=== PATIENT | male | born 1985 | race Caucasian/White ===

== ENCOUNTER → 2019-05-05 10:13 | Outpatient (BNVA) | payer MEDICARE, MEDICAID, SELFPAY | PROVIDERS: Family Provider Internal Medicine; PCP Internal Medicine; Referring Provider Internal Medicine; Visit Provider Specialist | DX: G40.309 Generalized idiopathic epilepsy and epileptic syndromes, not intractable, without status epilepticus (principal); G80.9 Cerebral palsy, unspecified; G24.9 Dystonia, unspecified; G12.29 Other motor neuron disease | CPT/HCPCS: 99214 ==

== ENCOUNTER → 2019-08-03 13:38 | Outpatient (BNVA) | payer MEDICARE, MEDICAID, SELFPAY | PROVIDERS: Family Provider Internal Medicine; PCP Internal Medicine; Visit Provider Specialist | DX: G40.309 Generalized idiopathic epilepsy and epileptic syndromes, not intractable, without status epilepticus (principal) | CPT/HCPCS: 99213 ==

== ENCOUNTER → 2019-11-14 09:13 | Outpatient (BNVA) | payer MEDICARE, MEDICAID, SELFPAY | PROVIDERS: Family Provider Internal Medicine; PCP Internal Medicine; Visit Provider Family Medicine | DX: Z20.828 Contact with and (suspected) exposure to other viral communicable diseases (principal) | CPT/HCPCS: 87635 ==

== ENCOUNTER → 2019-11-17 08:47 | Day surgery (SDC) | payer MEDICARE, MEDICAID, SELFPAY ==
[2019-11-17 09:09] VITALS: BP 129/85; PULSE 84; RESP 18; TEMP 36.3; O2SAT 97
--- NOTE | 2019-11-17 09:18 | W.PM.OPSUD ---
Surgery/Procedure H&P Update DATE OF PROCEDURE: November 17, 2019 DATE H&P PERFORMED: 11/08/19 H&P UPDATE INFORMATION: Changes to prior documentation as noted here PLANNED PROCEDURE: Operation Date: 11/17/19 12:50 Proposed Procedures p Gastric Tube Exchange(Not Applicable) - Raúl Thomas MD
--- NOTE | 2019-11-17 09:18 | PM.OP ---
Operative Report Date of procedure: November 17, 2019 Pre-op Diagnosis: Mechanical complication of gastrostomy button. Post-op diagnosis: same Procedure Done: Gastrostomy button change. Pathology: none sent Surgeon: Raúl Thomas Anesthesia: None Complications: None. Procedure: The patient was encountered in the outpatient surgery department. And attempt was made to deflate the gastrostomy button balloon through the one-way valve, but the valve appeared to have been stuck shut in the water returned. The balloon was still inflated as evidenced by the inability to remove the button from the abdominal wall. For this reason a pair of scissors was used to partially cut the balloon tract at the main button tubing and water was allowed to escape from the balloon. This allowed the existing gastrostomy button to be removed intact. A new 20 Vincent[place] CRISTINO 2.5 cm gastrostomy button was easily inserted into the gastrostomy tract and the balloon was inflated with 10 mL of sterile saline after the balloon had been tested prior to insertion. A drain sponge was applied underneath the external portion of the button. The patient was discharged from the outpatient surgery department in stable condition following the procedure.
== END ==
PROVIDERS: PCP Internal Medicine; Visit Provider Surgery
DX: K94.23 Gastrostomy malfunction (principal); G80.9 Cerebral palsy, unspecified
CPT/HCPCS: 12345; 43760; 43762

== ENCOUNTER → 2020-05-23 09:39 | Outpatient (BNVA) | payer MEDICARE, MEDICAID, SELFPAY | PROVIDERS: PCP Internal Medicine; Visit Provider Specialist | DX: G24.8 Other dystonia (principal); G12.29 Other motor neuron disease; G80.9 Cerebral palsy, unspecified; G40.309 Generalized idiopathic epilepsy and epileptic syndromes, not intractable, without status epilepticus | CPT/HCPCS: 99213; 99214 ==

== ENCOUNTER → 2020-11-20 10:58 | Outpatient (BNVA) | payer MEDICARE, MEDICAID, SELFPAY | PROVIDERS: PCP Internal Medicine; Visit Provider Specialist | DX: G12.29 Other motor neuron disease (principal); G80.9 Cerebral palsy, unspecified; G24.9 Dystonia, unspecified; G40.309 Generalized idiopathic epilepsy and epileptic syndromes, not intractable, without status epilepticus | CPT/HCPCS: 99213 ==

== ENCOUNTER → 2021-01-31 07:05 | Day surgery (SDC) | payer MEDICARE, MEDICAID, SELFPAY ==
[2021-01-31 06:54] VITALS: BMI 20.7
--- NOTE | 2021-01-31 07:19 | W.PM.OPSUD ---
Surgery/Procedure H&P Update DATE OF PROCEDURE: January 31, 2021 DATE H&P PERFORMED: 01/22/21 H&P UPDATE INFORMATION: No changes to prior documentation PREOP DIAGNOSIS: Mechanical complication of gastrostomy button. PLANNED PROCEDURE: Change of gastrostomy button.
--- NOTE | 2021-01-31 07:21 | P.OP_ITS ---
Operative Report Date of procedure: January 31, 2021 Pre-op Diagnosis: Mechanical complication of gastrostomy button. Post-op diagnosis: same Procedure Done: Change of gastrostomy button. Pathology: none sent Surgeon: Raúl Thomas Anesthesia: None Estimated blood loss (mL): 0 Condition: stable Procedure: The patient was brought to the GI lab and was slightly reclined in his electric wheelchair. The old gastrostomy button valve to the inflatable balloon was not functioning so a pair of scissors was used to slightly cut the gastrostomy button and the water from within the balloon was drained. The old gastrostomy button was then removed intact. A new CRISTINO 20 Nepali 2.5 cm gastrostomy button was easily placed through the same gastrostomy tract and the balloon was inflated with 10 cc of saline after being checked externally to make sure the balloon was intact. A small drain sponge was placed at the gastrostomy button site. The patient was eventually discharged from the GI lab in stable condition.
[2021-01-31 07:25] VITALS: BP 108/72; PULSE 82; RESP 20; TEMP 36.2; O2SAT 97
== END ==
PROVIDERS: PCP Internal Medicine; Visit Provider Surgery
DX: K94.23 Gastrostomy malfunction (principal)
CPT/HCPCS: 43762

== ENCOUNTER → 2021-05-14 10:14 | Outpatient (BNVA) | payer MEDICARE, MEDICAID, SELFPAY | PROVIDERS: PCP Internal Medicine; Referring Provider Specialist; Visit Provider Specialist | DX: G40.309 Generalized idiopathic epilepsy and epileptic syndromes, not intractable, without status epilepticus (principal) | CPT/HCPCS: 99213; 99214 ==

== ENCOUNTER → 2021-08-20 14:15 | Outpatient (BNVA) | payer MEDICARE, MEDICAID, SELFPAY | PROVIDERS: PCP Internal Medicine; Visit Provider Specialist | DX: G40.309 Generalized idiopathic epilepsy and epileptic syndromes, not intractable, without status epilepticus (principal); G80.9 Cerebral palsy, unspecified; G24.9 Dystonia, unspecified | CPT/HCPCS: 99213 ==

== ENCOUNTER 2021-12-11 06:00 | Outpatient (RCR) | payer MEDICARE, MEDICAID, SELFPAY | END 2021-12-23 23:59 | disposition home or self-care (01) | LOC: SST 06:00 | PROVIDERS: PCP Internal Medicine; Visit Provider Internal Medicine | DX: G80.0 Spastic quadriplegic cerebral palsy (principal); R47.1 Dysarthria and anarthria | CPT/HCPCS: 92523 ==

== ENCOUNTER 2021-12-24 06:00 | Outpatient (RCR) | payer MEDICARE, MEDICAID, SELFPAY | END 2022-01-22 23:59 | disposition home or self-care (01) | LOC: SST 06:00 | PROVIDERS: PCP Internal Medicine; Visit Provider Internal Medicine | DX: G80.0 Spastic quadriplegic cerebral palsy (principal); R47.1 Dysarthria and anarthria | CPT/HCPCS: 92609 ==

== ENCOUNTER → 2022-03-04 13:35 | Outpatient (BNVA) | payer MEDICARE, MEDICAID, SELFPAY | PROVIDERS: PCP Internal Medicine; Visit Provider Specialist | DX: G40.309 Generalized idiopathic epilepsy and epileptic syndromes, not intractable, without status epilepticus (principal) | CPT/HCPCS: G0463 ==

== ENCOUNTER → 2022-04-09 13:42 | Outpatient (BNVA) | payer MEDICARE, MEDICAID, SELFPAY | PROVIDERS: PCP Internal Medicine; Visit Provider Specialist | DX: G40.309 Generalized idiopathic epilepsy and epileptic syndromes, not intractable, without status epilepticus (principal); G80.3 Athetoid cerebral palsy; Z99.3 Dependence on wheelchair | CPT/HCPCS: 99213 ==

== ENCOUNTER → 2022-10-07 10:07 | Outpatient (BNVA) | payer MEDICARE, MEDICAID, SELFPAY | PROVIDERS: PCP Internal Medicine; Visit Provider Specialist | DX: G40.309 Generalized idiopathic epilepsy and epileptic syndromes, not intractable, without status epilepticus (principal); G80.9 Cerebral palsy, unspecified; G24.9 Dystonia, unspecified; G12.29 Other motor neuron disease; G47.00 Insomnia, unspecified | CPT/HCPCS: 99213 ==

== ENCOUNTER → 2023-04-15 09:08 | Outpatient (BNVA) | payer MEDICARE, MEDICAID, SELFPAY | PROVIDERS: PCP Internal Medicine; Visit Provider Specialist | DX: R29.90 Unspecified symptoms and signs involving the nervous system (principal); G40.309 Generalized idiopathic epilepsy and epileptic syndromes, not intractable, without status epilepticus; G80.9 Cerebral palsy, unspecified; G24.9 Dystonia, unspecified; G12.29 Other motor neuron disease | CPT/HCPCS: 99213 ==

== ENCOUNTER → 2023-10-13 14:28 | Outpatient (BNVA) | payer MEDICARE, MEDICAID, SELFPAY | PROVIDERS: PCP Internal Medicine; Visit Provider Specialist | DX: R29.90 Unspecified symptoms and signs involving the nervous system (principal); G40.309 Generalized idiopathic epilepsy and epileptic syndromes, not intractable, without status epilepticus; G80.9 Cerebral palsy, unspecified; G24.9 Dystonia, unspecified; G12.29 Other motor neuron disease | CPT/HCPCS: 99213 ==

== ENCOUNTER → 2024-04-18 14:46 | Outpatient (BNVA) | payer MEDICARE, MEDICAID, SELFPAY | PROVIDERS: PCP Internal Medicine; Visit Provider Specialist | DX: R29.90 Unspecified symptoms and signs involving the nervous system (principal); G40.309 Generalized idiopathic epilepsy and epileptic syndromes, not intractable, without status epilepticus; G80.9 Cerebral palsy, unspecified; G24.9 Dystonia, unspecified; G12.29 Other motor neuron disease | CPT/HCPCS: 99213 ==

== ENCOUNTER → 2024-12-28 11:52 | Outpatient (BNVA) | payer MEDICARE, MEDICAID, SELFPAY | PROVIDERS: PCP Internal Medicine; Visit Provider Specialist | DX: G40.309 Generalized idiopathic epilepsy and epileptic syndromes, not intractable, without status epilepticus (principal); G80.9 Cerebral palsy, unspecified; G24.9 Dystonia, unspecified; G12.29 Other motor neuron disease | CPT/HCPCS: 99213 ==